=== PATIENT | female | born 1990 | race Two or more races ===

== ENCOUNTER 2022-11-01 13:38 | Emergency (ER) | payer MEDICAID ==
[~2022-11-01] VITALS: Ht 154.9 cm; Wt 92.7 kg
[2022-11-01 14:37] VITALS: BP 116/75; PULSE 83; RESP 18; O2SAT 97
[2022-11-01 16:05] LABS: Urine Bacteria NONE SEEN /hpf (None Seen); Urine Blood Negative /uL (Negative); Urine Clarity Clear (Clear); Urine Color Yellow (Yellow); Urine Protein, UAD Negative (Negative); Urine Urobilinogen Normal (Negative); Urine WBC 1 /hpf (0 - 5)
== END 2022-11-01 18:41 | disposition left against medical advice (07) ==
LOC: ER 13:38
DX: M79.10 Myalgia, unspecified site (principal); Z53.21 Procedure and treatment not carried out due to patient leaving prior to being seen by health care provider
CPT/HCPCS: 81001